=== PATIENT | female | born 1965 | race Caucasian/White ===

== ENCOUNTER 2017-01-26 21:00 | Emergency (ER) | payer OTHER ==
[~2017-01-26] VITALS: Ht 182.9 cm; Wt 105.0 kg
[~2017-01-26 21:00] MED LIST: ACYC-1 PO; ADDE25CA PO; HYDR-3533 PO; PRED10PA PO; PREV30CA36 PO; PROM25TA5 PO; WELL150T PO
[2017-01-26 21:13] VITALS: BP 116/66; PULSE 101; RESP 18; TEMP 98.7; O2SAT 97
[2017-01-26] MEDS ORDERED: ADDE20 PO (22:12)
[2017-01-26] MEDS ORDERED: ACYC800T PO (22:12)
[2017-01-26] MEDS ORDERED: WELLTAB39 PO (22:12)
[2017-01-26] MEDS ORDERED: PREV30CA11 PO (22:12)
[2017-01-26] MEDS ORDERED: HYDR-3533 PO (22:12)
[2017-01-26] MEDS ORDERED: XANA1TAB2 PO (22:20)
[2017-01-26] MEDS ORDERED: BISACODYL 10 MG SUPP RECTAL ONE (22:30)
[2017-01-26] MEDS ORDERED: ANUC25SU RECTAL (22:43)
[2017-01-26] MEDS ORDERED: MAGN1SOL2 PO (22:43)
--- NOTE | 2017-01-26 22:43 | PD ---
HPI Chief Complaint: GI Complaint Time Seen by Provider: 22:22 Travel History International Travel<30 days: No Contact w/Intl Traveler<30days: No Traveled to known affect area: No History of Present Illness HPI This 51-year-old female says that 2 days ago she was straining to have a bowel movement she noted some pain in the rectum and she had some bleeding. She's been unable to have a bowel movement since then and has ongoing pain and intermittent. She has been constipated in the past. PFSH Past Medical History ADHD: Yes Depression: Yes Diminished Hearing: No Integumentary: Yes (SHINGLES) Immunizations Current: No Migraines: Yes ?: Not : 4 Para: 2 : 2 Past Surgical History Other Surgery: Yes (BREAST AUGMENTATION 2005) Social History Alcohol Use: No Tobacco Use: Yes (1/ PPD X 18 YEARS) Substance Use: No Allergies-Medications (Allergen,Severity, Reaction): Coded Allergies: prednisone (Verified Allergy, Intermediate, 01/26/17) codeine (Unverified Allergy, Mild, 01/21/17) penicillin G (Unverified Allergy, Mild, RASH, BREATHING TROUBLE, 01/21/17) Reported Meds & Prescriptions Reported Meds & Active Scripts Active Reported Xanax (Alprazolam) 1 Mg Tab 1 Mg PO Q6H PRN Prevacid (Lansoprazole) 30 Mg Capdr 30 Mg PO DAILY Lortab (Hydrocodone-Acetaminophen) 5-325 Mg Tab 1 Tab PO Q6H PRN Wellbutrin Xl 24 HR (Bupropion HCl) 300 Mg Tab 300 Mg PO DAILY Adderall (Amphetamine-Dextroamphetamine) 20 Mg Tab 20 Mg PO DAILY Avoid late evening doses. Space doses at least 4 to 6 hours if more than once/day dosing. Acyclovir 800 Mg Tab 800 Mg PO TID Review of Systems General / Constitutional: No: Fever, Chills Eyes: No: Diploplia HENT: No: Headaches Cardiovascular: No: Chest Pain or Discomfort, Palpitations Respiratory: No: Cough Gastrointestinal: Positive: Hematochezia, Constipation, No: Nausea, Vomiting Genitourinary: No: Urgency, Frequency Skin: No Rash Physical Exam Narrative GENERAL: Well-developed female SKIN: Focused skin assessment warm/dry. HEAD: Atraumatic. Normocephalic. EYES: Pupils equal and round. No scleral icterus. No injection or drainage. ENT: No nasal bleeding or discharge. Mucous membranes pink and moist. NECK: Trachea midline. No JVD. CARDIOVASCULAR: Regular rate and rhythm. No murmur appreciated. RESPIRATORY: No accessory muscle use. Clear to auscultation. Breath sounds equal bilaterally. GASTROINTESTINAL: Abdomen soft, non-tender, nondistended. Hepatic and splenic margins not palpable. Rectal exam there are no hemorrhoids palpable. Stool is brown and is not hard. I there is no blood present MUSCULOSKELETAL: No obvious deformities. No clubbing. No cyanosis. No edema. NEUROLOGICAL: Awake and alert. No obvious cranial nerve deficits. Motor grossly within normal limits. Normal speech. PSYCHIATRIC: Appropriate mood and affect; insight and judgment normal. Data Data Last Documented VS Vital Signs Date Time Temp Pulse Resp B/P (MAP) Pulse Ox O2 Delivery O2 Flow Rate FiO2 01/26/17 21:13 98.7 101 18 116/66 (83) 97 Orders Orders Bisacodyl Supp (Dulcolax Supp) (01/26/17 22:30) [facility] Medical Decision Making Medical Screen Exam Complete: No Emergency Medical Condition: No Medical Record Reviewed: No Differential Diagnosis Differential includes internal hemorrhoids, anal fissure, constipation Narrative Course She'll be treated with citrate of magnesia and Anusol Diagnosis Primary Impression: Constipation Qualified Codes: K59.00 - Constipation, unspecified Additional Impression: possible anal fissure Scripts Hydrocortisone Acetate Supp (Anucort-Hc Supp) 25 Mg Supp 25 MG RECTAL BID for Hemorrhoids for 7 Days, SUPP 0 Refills Prov: Enoc Azevedo MD 01/26/17 Magnesium Citrate Liq (Citrate of Magnesia Liq) 300 Ml Liq 300 ML PO ONCE, #1 BOTTLE 0 Refills Prov: Enoc Azevedo MD 01/26/17 Disposition: 01 DISCHARGE HOME Condition: Stable Enoc Azevedo MD Jan 26, 2017 22:43
== END 2017-01-26 22:54 | disposition home or self-care (01) ==
LOC: PHED 21:00
DX: K59.00 Constipation, unspecified (principal); F17.210 Nicotine dependence, cigarettes, uncomplicated
CPT/HCPCS: 99284

== ENCOUNTER 2017-06-02 03:52 | Inpatient (IN) | payer SELFPAY ==
[~2017-06-02] VITALS: Ht 182.9 cm; Wt 101.7 kg
[2017-06-02] VITALS (16 sets, daily range): BP systolic 97–139; BP diastolic 58–90; PULSE 78–94; RESP 15–20; TEMP 97.2–98.7; O2SAT 93–99
[~2017-06-02 03:52] MED LIST changes: -ACYC-1 PO; +ACYC800T PO; +ADDE20 PO; -ADDE25CA PO; +ANUC25SU RECTAL; +MAGN1SOL2 PO; -PRED10PA PO; -PROM25TA5 PO; -WELL150T PO; +WELLTAB39 PO; +XANA1TAB2 PO
[2017-06-02] MEDS ORDERED: SODIUM CHLOR 0.9% 1000 ML INJ 1,000 ML IV ONE (04:16)
--- NOTE | 2017-06-02 04:26 | PD ---
HPI Chief Complaint: OD/ Ingestion Time Seen by Provider: 04:01 Travel History International Travel<30 days: No Contact w/Intl Traveler<30days: No Traveled to known affect area: No History of Present Illness HPI 52-year-old female presents to the emergency department by private transportation for evaluation of overdose and upper respiratory infection. According to the patient for the past 6 days she has been taking her prescription Adderall inappropriately. Patient states she's taken extra Adderall because she felt like she needed more energy. Patient states that today she took a total of 4 Adderall 20 mg also took 5 Lortab 5/325 and 2 Xanax 1 mg. Patient reports that the Adderall as her prescription but the Lortab and Xanax or not. Patient started taking her Lortab at 10 AM on Friday morning and has taken them throughout the day not as a one-time bolus patient is also in taking the Adderall as a spread out ingestion and took the Xanax 2 mg at one time. Patient also states that 3 days ago she drank a beverage that contains Alyssa. Patient reports she is a recovering drug addict. Patient admits to alcohol use and tobacco use. Patient otherwise denies any medical concerns or history. Patient takes no other prescription medications. Patient denies being suicidal or homicidal. Patient presents with her friend who states she has not hurt her mention her behave in a suicidal manner or homicidal manner. Friend reports he was just concerned that based on her poor decisions and taking her medications inappropriately and using medications that are not prescribed for her that she might go to sleep and not wake. Patient was agreeable to being brought to the emergency department voluntarily to be evaluated. Patient states the reason she decided to come to the emergency room tonight is that she's noted since taking the additional medication she has been short of breath more frequently and with exertion. Patient was concerned there may be a correlation. Patient does not report any chest pain. Patient does report feeling that her heart has been racing. PFSH Past Medical History Narrative Medical ADHD anxiety depression breast augmentation menopausal tobacco use alcohol use shingles migraines; nursing notes reviewed ADHD: Yes Depression: Yes Diminished Hearing: No Integumentary: Yes (SHINGLES) Immunizations Current: No Migraines: Yes Tetanus Vaccination: Unknown Influenza Vaccination: No ?: Not LMP: 5 MO AGO. GOING THROUGH MENSPAUSE : 4 Para: 2 : 2 Past Surgical History Other Surgery: Yes (BREAST AUGMENTATION 2005) Social History Alcohol Use: No Tobacco Use: Yes (1/2 PPD X 18 YEARS) Substance Use: No Allergies-Medications (Allergen,Severity, Reaction): Coded Allergies: prednisone (Verified Allergy, Intermediate, 06/02/17) codeine (Unverified Allergy, Mild, 06/02/17) penicillin G (Unverified Allergy, Mild, RASH, BREATHING TROUBLE, 06/02/17) Reported Meds & Prescriptions Reported Meds & Active Scripts Active Anucort-Hc Supp (Hydrocortisone Acetate Supp) 25 Mg Supp 25 Mg RECTAL BID 7 Days Citrate of Magnesia Liq (Magnesium Citrate) 300 Ml Liq 300 Ml PO ONCE Reported Xanax (Alprazolam) 1 Mg Tab 1 Mg PO Q6H PRN Prevacid (Lansoprazole) 30 Mg Capdr 30 Mg PO DAILY Lortab (Hydrocodone-Acetaminophen) 5-325 Mg Tab 1 Tab PO Q6H PRN Wellbutrin Xl 24 HR (Bupropion HCl) 300 Mg Tab 300 Mg PO DAILY Adderall (Amphetamine-Dextroamphetamine) 20 Mg Tab 20 Mg PO DAILY Avoid late evening doses. Space doses at least 4 to 6 hours if more than once/day dosing. Acyclovir 800 Mg Tab 800 Mg PO TID Review of Systems Except as stated in HPI: all other systems reviewed are Neg General / Constitutional: No: Fever, Chills Eyes: No: Visual changes HENT: Positive: Congestion, No: Sore Throat Cardiovascular: Positive: Tachycardia, Dyspnea on exertion, No: Chest Pain or Discomfort, Palpitations, Syncope, Edema Respiratory: Positive: Shortness of Breath, No: Pleuritic Pain Gastrointestinal: No: Nausea, Vomiting, Diarrhea, Abdominal Pain Genitourinary: No: Dysuria Skin: No Rash, No Dryness Neurologic: No: Weakness, Dizziness, Syncope, Focal Abnormalities Psychiatric: No: Suicidal Ideations (patient denies) Endocrine: No: Heat Intolerance, Cold Intolerance Hematologic/Lymphatic: No: Easy Bruising Physical Exam Narrative GENERAL: Well-developed well-nourished female in no acute distress no respiratory distress; GCS 15. SKIN: Warm and dry. HEAD: Atraumatic. Normocephalic. EYES: Pupils equal and round. No scleral icterus. No injection or drainage. ENT: No nasal bleeding or discharge. Mucous membranes pink and moist. NECK: Trachea midline. No JVD. CARDIOVASCULAR: Regular rate and rhythm. RESPIRATORY: No accessory muscle use. Clear to auscultation. Breath sounds equal bilaterally. GASTROINTESTINAL: Abdomen soft, non-tender, nondistended. Hepatic and splenic margins not palpable. MUSCULOSKELETAL: Extremities without clubbing, cyanosis, or edema. No obvious deformities. NEUROLOGICAL: Awake and alert. No obvious cranial nerve deficits. Motor grossly within normal limits. Five out of 5 muscle strength in the arms and legs. Normal speech. PSYCHIATRIC: Appropriate mood and affect; insight and judgment normal. Data Data Last Documented VS Vital Signs Date Time Temp Pulse Resp B/P (MAP) Pulse Ox O2 Delivery O2 Flow Rate FiO2 06/02/17 04:31 16 114/70 (85) 97 Room Air 06/02/17 03:54 98.6 94 Orders Orders Electrocardiogram (06/02/17 04:16) Complete Blood Count With Diff (06/02/17 04:16) Comprehensive Metabolic Panel (06/02/17 04:16) Prothrombin Time / Inr (Pt) (06/02/17 04:16) Act Partial Throm Time (Ptt) (06/02/17 04:16) Urinalysis - C+S If Indicated (06/02/17 04:16) Chest, Single Ap (06/02/17 04:16) Blood Glucose (06/02/17 04:16) Iv Access Insert/Monitor (06/02/17 04:16) Ecg Monitoring (06/02/17 04:16) Oximetry (06/02/17 04:16) Sodium Chloride 0.9% Flush (Ns Flush) (06/02/17 04:30) Sodium Chlor 0.9% 1000 Ml Inj (Ns 1000 M (06/02/17 04:16) Drug Screen, Random Urine (06/02/17 04:16) Alcohol (Ethanol) (06/02/17 04:16) Salicylates (Aspirin) (06/02/17 04:16) Tylenol (Acetaminophen) (06/02/17 04:16) Magnesium (Mg) (06/02/17 04:16) Troponin I (06/02/17 04:16) Ckmb (Isoenzyme) Profile (06/02/17 04:16) Type And Screen (06/02/17 05:23) Red Blood Cells (Rbc) (06/02/17 05:23) Blood Product Administration (06/02/17 05:23) Sodium Chlor 0.9% 250 Ml Inj (Ns 250 Ml (06/02/17 05:30) Ct Abd/Pel W Iv Contrast(Rout) (06/02/17 ) Admit Order (Ed Use Only) (06/02/17 ) Advertising Sales Assistant / Telemetry [id number] (06/02/17 05:57) Diet Npo (06/02/17 Breakfast) Activity Oob With Assistance (06/02/17 05:57) Notify Dr: Other (06/02/17 05:57) Labs Laboratory Tests Test 06/02/17 04:30 06/02/17 04:53 Urine Color STRAW Urine Turbidity CLEAR Urine pH 5.5 Urine Specific [place] 1.007 Urine Protein NEG mg/dL Urine Glucose (UA) NEG mg/dL Urine Ketones NEG mg/dL Urine Occult Blood TRACE Urine Nitrite NEG Urine Bilirubin NEG Urine Leukocyte Esterase NEG Urine RBC 0-3 /hpf Urine Squamous Epithelial Cells 0-5 /hpf Microscopic Urinalysis Comment CULT NOT INDICATED Urine Opiates Screen POS Urine Barbiturates Screen NEG Urine Amphetamines Screen POS Urine Benzodiazepines Screen POS Urine Cocaine Screen NEG Urine Cannabinoids Screen NEG White Blood Count 4.8 TH/MM3 Red Blood Count 3.48 MIL/MM3 Hemoglobin 6.6 GM/DL Hematocrit 22.3 % Mean Corpuscular Volume 64.0 FL Mean Corpuscular Hemoglobin 18.9 PG Mean Corpuscular Hemoglobin Concent 29.5 % Red Cell Distribution Width 20.8 % Platelet Count 360 TH/MM3 Mean Platelet Volume 7.6 FL Neutrophils (%) (Auto) 41.8 % Lymphocytes (%) (Auto) 42.0 % Monocytes (%) (Auto) 12.8 % Eosinophils (%) (Auto) 2.9 % Basophils (%) (Auto) 0.5 % Neutrophils # (Auto) 2.0 TH/MM3 Lymphocytes # (Auto) 2.1 TH/MM3 Monocytes # (Auto) 0.6 TH/MM3 Eosinophils # (Auto) 0.1 TH/MM3 Basophils # (Auto) 0.0 TH/MM3 CBC Comment AUTO DIFF Differential Comment AUTO DIFF CONFIRMED Platelet Estimate NORMAL Platelet Morphology Comment CLUMPED Spherocytes OCC Ovalocytes 1+ Prothrombin Time 10.0 SEC Prothromb Time International Ratio 1.0 RATIO Activated Partial Thromboplast Time 24.6 SEC Blood Urea Nitrogen 20 MG/DL Creatinine 0.77 MG/DL Random Glucose 99 MG/DL Total Protein 6.7 GM/DL Albumin 3.0 GM/DL Calcium Level 8.1 MG/DL Magnesium Level 2.1 MG/DL Alkaline Phosphatase 70 U/L Aspartate Amino Transf (AST/SGOT) 14 U/L Alanine Aminotransferase (ALT/SGPT) 14 U/L Total Bilirubin 0.1 MG/DL Sodium Level 135 MEQ/L Potassium Level 3.9 MEQ/L Chloride Level 105 MEQ/L Carbon Dioxide Level 22.1 MEQ/L Anion Gap 8 MEQ/L Estimat Glomerular Filtration Rate 78 ML/MIN Total Creatine Kinase 70 U/L Troponin I LESS THAN 0.02 NG/ML Salicylates Level 3.1 MG/DL Acetaminophen Level 3.7 MCG/ML Ethyl Alcohol Level LESS THAN 3 MG/DL MDM Medical Decision Making Medical Screen Exam Complete: Yes Emergency Medical Condition: Yes Medical Record Reviewed: Yes Interpretation(s) EKG: Normal sinus rhythm heart rate 85 normal axis and intervals no acute ST elevation or injury pattern change noted CBC & BMP Diagram 06/02/17 04:53 Total Protein 6.7, Albumin 3.0 L, Calcium Level 8.1 L, Magnesium Level 2.1, Alkaline Phosphatase 70, Aspartate Amino Transf (AST/SGOT) 14 L, Alanine Aminotransferase (ALT/SGPT) 14, Total Bilirubin 0.1 L Last Impressions Chest X-Ray 06/02/17 0416 Signed Impressions: Service Date/Time: Friday, June 02, 2017 04:26 - CONCLUSION: Slight cardiomegaly. Jeannine Breen MD Abdomen/Pelvis CT 06/02/17 0000 Signed Impressions: Service Date/Time: Friday, June 02, 2017 05:59 - CONCLUSION: Essentially unremarkable study except for small left adrenal adenoma. Jeannine Breen MD Vital Signs Date Time Temp Pulse Resp B/P (MAP) Pulse Ox O2 Delivery O2 Flow Rate FiO2 06/02/17 04:31 16 114/70 (85) 97 Room Air 06/02/17 03:54 98.6 94 18 139/79 (99) 99 Differential Diagnosis Polysubstance ingestion, medication intolerance, overdose accidental versus intentional, electrolyte disturbance, arrhythmia, renal insufficiency, rhabdomyolysis, MS Narrative Course Patient placed on monitor tech with continuous pulse oximetry, IV access obtained, EKG ordered, specimens collected and sent for resulting Patient cooperative resting comfortably waiting on lab results Patient identified to have anemia hemoglobin 66; rectal exam performed as dark brown stool that is Hemoccult positive; patient admits to pica-increased ice consumption; patient denies known hematemesis coffee-ground emesis melanoma hematochezia or excessive NSAID use. No prior history of GI bleed. patient aware of plan for admission and agrees to stay Sepsis Criteria SIRS Criteria (2 or more): WBC > 21192, < 4000 or > 10% bands Physician Communication Physician Communication discussed with Dr Laughlin --admit to [facility] service Diagnosis Primary Impression: Anemia Additional Impressions: GI bleed Polysubstance abuse Humera Conteh MD Jun 02, 2017 04:26
[2017-06-02] MEDS ORDERED: SODIUM CHLORIDE 0.9% FLUSH 10 ML FLUSH IVF PRN (04:30)
[2017-06-02 04:34] LABS: BILIRUBIN, URINE NEG (NEG); BLOOD, URINE TRACE (NEG); GLUCOSE,URINE NEG (NEG); KETONE, URINE NEG (NEG); NITRITE,URINE NEG (NEG); PH, URINE 5.5 (5.0-8.5); URINE LEUKOCYTE ESTERASE NEG (NEG)
--- NOTE | 2017-06-02 05:00 | RADRPT ---
EXAM DATE/TIME: 06/02/2017 04:26 [facility] COMPARISON: No previous studies available for comparison. INDICATIONS : Patient complains of cough, congestion, and chest pain from coughing. MEDICAL HISTORY : None. SURGICAL HISTORY : None. ENCOUNTER: Initial ACUITY: 4 - 6 days PAIN SCORE: 3/10 LOCATION: chest FINDINGS: The lungs are clear without infiltrate, nodule, or mass. There is no appreciable pleural effusion fo r technique. Slight cardiomegaly is seen. CONCLUSION: Slight cardiomegaly. Jeannine Breen MD on June 02, 2017 at 4:58 Board Certified Radiologist. This report was verified electronically.
[2017-06-02 05:16] LABS: CHLORIDE 105 MEQ/L (98-107); SODIUM (NA) 135 MEQ/L (136-145)
[2017-06-02 05:19] LABS: BASOPHIL % 0.5 % (0.0-2.0); EOSINOPHIL # 0.1 TH/MM3 (0-0.4); EOSINOPHIL % 2.9 % (0.0-4.0); HEMATOCRIT 22.3 % (35.0-46.0); LYMPHOCYTE # 2.1 TH/MM3 (1.0-4.8); MEAN CORPUSCULAR HEMOGLOBIN 18.9 PG (27.0-34.0); MEAN PLATELET VOLUME 7.6 FL (7.0-11.0); MONO % 12.8 % (0.0-8.0); MONOCYTE # 0.6 TH/MM3 (0-0.9); NEUT % 41.8 % (16.0-70.0); PLATELET COUNT 360 TH/MM3 (150-450); RED BLOOD COUNT 3.48 MIL/MM3 (4.00-5.30); RED CELL DISTRIBUTION WIDTH 20.8 % (11.6-17.2); WHITE BLOOD COUNT 4.8 TH/MM3 (4.0-11.0)
[2017-06-02 05:20] LABS: BICARBONATE 22.1 MEQ/L (21.0-32.0); BLOOD UREA NITROGEN 20 MG/DL (7-18); CALCIUM 8.1 MG/DL (8.5-10.1); GLUCOSE,RANDOM 99 MG/DL (74-106); MAGNESIUM 2.1 MG/DL (1.5-2.5)
[2017-06-02 05:23] LABS: ALT (GPT) 14 U/L (10-53); AST (GOT) 14 U/L (15-37); CREATININE 0.77 MG/DL (0.50-1.00); GLOMERULAR FILTRATION RATE 78 ML/MIN (>89)
[2017-06-02 05:24] LABS: HEMOGLOBIN 6.6 GM/DL (11.6-15.3); MEAN CORPUSCULAR HGB CONC 29.5 % (32.0-36.0)
[2017-06-02 05:25] LABS: TOTAL BILIRUBIN ADULT 0.1 MG/DL (0.2-1.0); TOTAL PROTEIN 6.7 GM/DL (6.4-8.2)
[2017-06-02 05:26] LABS: ALKALINE PHOSPHATASE 70 U/L (45-117)
[2017-06-02 05:29] LABS: TROPONIN I LESS THAN 0.02 NG/ML (0.02-0.05)
[2017-06-02] MEDS ORDERED: SODIUM CHLOR 0.9% 250 ML INJ 250 ML IV ONE (05:30)
[2017-06-02 05:31] LABS: URINE COLOR STRAW (YELLW/STRAW)
[2017-06-02 05:47] LABS: ACETAMINOPHEN 3.7 MCG/ML (10.0-30.0)
[2017-06-02 05:51] LABS: SQUAMOUS EPITHELIAL CELL URINE 0-5 /hpf (0-5)
[2017-06-02 05:52] LABS: RBC, URINE 0-3 /hpf (0-3)
[2017-06-02 05:56] LABS: OVALOCYTES 1+ (NORMAL); SPHEROCYTES OCC (NORMAL)
[2017-06-02] MEDS ORDERED: SENNOSIDES 8.6 MG TAB PO PRN (06:00)
[2017-06-02] MEDS ORDERED: BISACODYL 10 MG SUPP RECTAL PRN (06:00)
[2017-06-02] MEDS ORDERED: SODIUM CHLORIDE 0.9% FLUSH 10 ML FLUSH IV FLUSH PRN (06:00)
[2017-06-02] MEDS ORDERED: NALOXONE HCL 0.4 MG/ML AMP IV PUSH PRN (06:00)
[2017-06-02] MEDS ORDERED: ONDANSETRON HCL 4 MG/2 ML VIAL IVP PRN (06:00)
[2017-06-02] MEDS ORDERED: LACTULOSE SYRUP 20 GM/30 ML CUP PO PRN (06:00)
[2017-06-02] MEDS ORDERED: MAGNESIUM HYDROXIDE SUSP 30 ML CUP PO PRN (06:00)
[2017-06-02] MEDS ORDERED: IOHEXOL 350 MG/ML 10 ML VIAL (for RAD DIAG) IVCONTRAST ONE (06:06)
--- NOTE | 2017-06-02 06:23 | RADRPT ---
EXAM DATE/TIME: 06/02/2017 05:59 [facility] COMPARISON: No previous studies available for comparison. INDICATIONS : Blood in stool. IV CONTRAST: 96 cc Omnipaque 350 (iohexol) IV ORAL CONTRAST: No oral contrast ingested. RADIATION DOSE: 18.76 CTDIvol (mGy) MEDICAL HISTORY : None SURGICAL HISTORY : Breast augmentation ENCOUNTER: Initial ACUITY: 4 - 6 days PAIN SCALE: 5/10 LOCATION: abdomen TECHNIQUE: Volumetric scanning of the abdomen and pelvis was performed. Using automated exposure control and ad justment of the mA and/or kV according to patient size, radiation dose was kept as low as reasonably achievable to obtain optimal diagnostic quality images. DICOM format image data is available electro nically for review and comparison. FINDINGS: CT Abdomen: The liver, spleen, pancreas, kidneys, right adrenal are unremarkable. There is no evidenc e for any appreciable pathological adenopathy, free fluid, or bowel obstruction. Huge hiatal hernia i s seen. Approximate 1.3 cm left adrenal nodule is present most likely a small adenoma. There is no ev idence for any stones in the kidneys or the course of the ureters on either side. There is no hydrone phrosis. CT pelvis: There is no evidence for mass, abscess formation, or any significant adenopathy within the pelvis. There is a tiny bone island in the right ischium almost 4-5 mm in size. CONCLUSION: Essentially unremarkable study except for small left adrenal adenoma. Jeannine Breen MD on June 02, 2017 at 6:17 Board Certified Radiologist. This report was verified electronically.
--- NOTE | 2017-06-02 08:43 | EKG ---
Date Performed: 06/02/2017 Time Performed: 04:30:04 PTAGE: 52 years EKG: Sinus rhythm NORMAL ECG NO PREVIOUS TRACING DOCTOR: Jonathan Min Interpretating Date/Time 06/02/2017 08:41:58
[2017-06-02] MEDS: DOCUSATE SODIUM 50 MG/SENNA 8.6 MG TAB PO SCH ×2 (09:00→20:50)
[2017-06-02] MEDS ORDERED: BISACODYL EC 5 MG TABEC PO ONE ×2 (09:15→15:00)
[2017-06-02] MEDS: SODIUM CHLORIDE 0.9% FLUSH 10 ML FLUSH IV FLUSH SCH ×2 (09:15→20:50)
[2017-06-02] MEDS ORDERED: PEG (High)/E-LYTE SOLN 4000 ML BTL PO ONE ×2 (09:15→15:00)
--- NOTE | 2017-06-02 09:26 | MB ---
cc: YOLIE JENSEN MD DATE OF CONSULTATION: 06/02/2017 REASON FOR CONSULTATION: Anemia. HISTORY OF PRESENT ILLNESS: This is a 52-year-old female patient with past medical history of depression who presented to the emergency room complaining of generalized fatigue and weakness. The patient was overdosing herself with different oral medications because she was feeling lethargic and needed some more energy. In the emergency room, the patient was found to have microcytic hypochromic anemia and was admitted for further evaluation. The patient denies any specific symptoms at the current time except for recent worsening of her constipation and that might be attributed to her overdosing with her opiates. She denies any bleeding per rectum or dark stools. Denies any nausea, vomiting, hematemesis. Denies any vaginal bleeding. The patient denies any change in weight or appetite. No dysphagia, heartburn or any other associated symptoms. Again, the patient was found to have hemoglobin of 6.6 in the emergency room, hematocrit 22.3 with indices suggestive of iron deficiency anemia. GI was consulted for further evaluation and possible endoscopic evaluation since the patient never had any previous screening colonoscopy or any previous endoscopy evaluation. PAST MEDICAL HISTORY: 1. Anxiety disorder. 2. Depression. 3. Migraine headaches. PAST SURGICAL HISTORY: Breast augmentation. SOCIAL HISTORY: The patient denies alcohol use but is a heavy tobacco user. Overuse of her oral prescription medications along with other medicine. MEDICATIONS: Actively she is on Adderall. She is not taking any other medications. ALLERGIES: 1. PREDNISONE. 2. CODEINE. 3. PENICILLIN. REVIEW OF SYSTEMS All fourteen systems negative other than the ones mentioned in the history of present illness. FAMILY HISTORY: Family history positive for gastric CA in her grandmother and her sister. PHYSICAL EXAMINATION: GENERAL: On examination, the patient was found to be comfortable, lethargic but responds properly to questions, alert and oriented times three. Pallor but no jaundice. Well-developed and good nutritional status. Not in respiratory distress. HEAD AND NECK: Normocephalic and atraumatic. Pupils equal and reactive to light bilaterally. Supple neck. No lymphadenopathy. No thyromegaly. CHEST: Clear to auscultation bilaterally. No crackles or wheezes. HEART: Regular rate and rhythm. No murmurs. ABDOMEN: The abdomen is soft, nontender. No hepatosplenomegaly. No palpable masses. EXTREMITIES: Normal pulses. No edema. NEUROLOGICAL EXAMINATION: Cranial nerves II through XII are grossly intact. No motor or sensory deficit. SKIN: No rashes. LABORATORY STUDIES: Hemoglobin 6.6, hematocrit 22.3, MCV 64, MCH 19, white count 4.8, platelet count of 360,000. Chemistries within normal limits except for a sodium of 135. AST and ALT 14. Alkaline phosphatase 70. Tox screen positive for opiates in the urine and positive for amphetamines in the blood and benzodiazepines. IMAGING STUDIES: CT scan unremarkable except for an adrenal adenoma. ASSESSMENT AND PLAN: A 52-year-old female patient who presented with the following problems: 1. Microcytic hypochromic anemia. 2. New onset constipation. 3. History of drug abuse. 4. No previous endoscopic evaluation. 5. Positive family history of gastric or colonic CA in her grandmother. RECOMMENDATIONS: 1. Will start bowel preparation today for an upper endoscopy and a colonoscopy. 2. Will start her on clear liquid diet. 3. Start GoLYTELY. 4. Dulcolax. 5. NPO after midnight. 6. Will obtain the consent to proceed in the morning. The procedure was explained to the patient including risks, benefits and possible complications, and the patient agreed to proceed as planned. Further recommendation to follow. Yolie CARR/KEYANA /8:50 AM /9:01 AM
[2017-06-02] MEDS ORDERED: SODIUM CHLOR 0.9% 250 ML INJ 250 ML IV SCH (10:00)
--- NOTE | 2017-06-02 10:17 | HHI.HP ---
[facility] Katheryn Reardon MD Admission Diagnosis anemia/gib; polysustance abuse Diagnoses: (1) GI bleed Diagnosis: Principal (2) Anemia Diagnosis: Principal (3) Polysubstance abuse Diagnosis: Principal Chief Complaint: Altered mental status Travel History International Travel<30 Days: No Contact w/Intl Traveler <30 Da: No Traveled to Known Affected Are: No History of Present Illness 52-year-old female with known history of depression, anxiety, attention deficit disorder, polysubstance abuse who presented to the hospital with her friend because of slurred speech, shortness of breath. Patient indicates that she does use drugs inappropriately. She has been using Adderall , Xanax, Lortab, Suboxone in order to alliance party. He states that her last 3 days she has been overusing medications has not really slept. She called her friend on the phone last evening and apparently she stated that her friend noticed that she was having difficulty speaking and shortness of breath so her friend brought her to the hospital for evaluation. Patient indicates that she is actually prescribed the Adderall and Xanax, however Lortab, Suboxone she is getting off the street. She was using Suboxone because she thought she may withdrawal from the Lortab because she is only using it intermittently. However she is using the Lortab and Suboxone at the same time. Patient denies any medical complaints. At time of barium patient she appears appropriate and does admit to overusing medication for recreational use. Patient had lab done in emergency department found to have hemoglobin of 6.6. Stool studies was performed which did show heme positive stool. Patient denies any melena or hematochezia. She denies any history of anemia or GI bleed. She denies any NSAID, aspirin use. Patient was admitted for GI bleed for GI consultation. Review of Systems Respiratory: COMPLAINS OF: Shortness of breath Neurologic: COMPLAINS OF: Speech Problems Except as stated in HPI: all other systems reviewed are Neg Past Family Social History Past Medical History Anxiety, depression Attention deficit disorder Past Surgical History Breast augmentation Reported Medications Reported Meds & Active Scripts Active Anucort-Hc Supp (Hydrocortisone Acetate Supp) 25 Mg Supp 25 Mg RECTAL BID 7 Days Citrate of Magnesia Liq (Magnesium Citrate) 300 Ml Liq 300 Ml PO ONCE Reported Xanax (Alprazolam) 1 Mg Tab 1 Mg PO Q6H PRN Prevacid (Lansoprazole) 30 Mg Capdr 30 Mg PO DAILY Lortab (Hydrocodone-Acetaminophen) 5-325 Mg Tab 1 Tab PO Q6H PRN Wellbutrin Xl 24 HR (Bupropion HCl) 300 Mg Tab 300 Mg PO DAILY Adderall (Amphetamine-Dextroamphetamine) 20 Mg Tab 20 Mg PO DAILY Avoid late evening doses. Space doses at least 4 to 6 hours if more than once/day dosing. Acyclovir 800 Mg Tab 800 Mg PO TID Allergies: Coded Allergies: prednisone (Verified Allergy, Intermediate, 06/02/17) codeine (Unverified Allergy, Mild, 06/02/17) penicillin G (Unverified Allergy, Mild, RASH, BREATHING TROUBLE, 06/02/17) Family History Reviewed is significant for mother with bone cancer. Patient states that she does not know her father's history. Social History Patient does smoke one pack of service a day since she was 14 years old. Patient denies any alcohol use. Patient obviously with polysubstance abuse of abusing Lortab, Suboxone, Adderall, Xanax. Some of which are prescribed, however others are not. Physical Exam Vital Signs Vital Signs Date Time Temp Pulse Resp B/P (MAP) Pulse Ox O2 Delivery O2 Flow Rate FiO2 06/02/17 10:04 97.4 86 17 99/69 93 06/02/17 09:48 82 15 97/75 94 06/02/17 09:32 84 15 99/66 94 06/02/17 09:17 97.2 84 16 115/72 93 06/02/17 04:31 16 114/70 (85) 97 Room Air 06/02/17 03:54 98.6 94 18 139/79 (99) 99 Physical Exam GENERAL: Well-developed, well-nourished, in no acute distress. alert and orientated HEENT: Head is normocephalic without any lesions or masses noted. Facial features are symmetric. Eyes: Pupils equal round reactive to light. Extraocular muscles are intact. Conjunctivae were clear. Oropharyngeal: Pharynx without any erythema edema. Tongue is midline without deviation. Buccal mucosa is moist without any masses or lesions NECK: Supple without any masses. Trachea midline no deviation. No JVD, no bruits are appreciated CARDIAC: Regular rhythm, regular rate. S1/S2 are heard. No murmurs gallops or rubs. LUNGS: Clear to auscultation bilaterally. No wheeze, rhonchi or rales. No use of accessory muscles on inspiration or expiration. ABDOMEN: Soft, nontender. Nondistended. Bowel sounds heard in all 4 quadrants. No organomegaly or masses. Negative rebound, negative guarding EXTREMITIES: No edema, pulses are equal bilaterally. No cyanosis or clubbing NEUROLOGY: Mood and affect appear appropriate. Cranial nerves II through XII grossly intact. Muscle strength 5/5 in upper and lower extremities bilaterally. Deep tendon reflexes are 2+ in upper and lower extremities bilaterally. Laboratory Laboratory Tests Test 06/02/17 04:30 06/02/17 04:53 Urine Color STRAW Urine Turbidity CLEAR Urine pH 5.5 Urine Specific Shaw 1.007 Urine Protein NEG Urine Glucose (UA) NEG Urine Ketones NEG Urine Occult Blood TRACE Urine Nitrite NEG Urine Bilirubin NEG Urine Leukocyte Esterase NEG Urine RBC 0-3 Urine Squamous Epithelial Cells 0-5 Microscopic Urinalysis Comment CULT NOT INDICATED Urine Opiates Screen POS Urine Barbiturates Screen NEG Urine Amphetamines Screen POS Urine Benzodiazepines Screen POS Urine Cocaine Screen NEG Urine Cannabinoids Screen NEG White Blood Count 4.8 Red Blood Count 3.48 Hemoglobin 6.6 Hematocrit 22.3 Mean Corpuscular Volume 64.0 Mean Corpuscular Hemoglobin 18.9 Mean Corpuscular Hemoglobin Concent 29.5 Red Cell Distribution Width 20.8 Platelet Count 360 Mean Platelet Volume 7.6 Neutrophils (%) (Auto) 41.8 Lymphocytes (%) (Auto) 42.0 Monocytes (%) (Auto) 12.8 Eosinophils (%) (Auto) 2.9 Basophils (%) (Auto) 0.5 Neutrophils # (Auto) 2.0 Lymphocytes # (Auto) 2.1 Monocytes # (Auto) 0.6 Eosinophils # (Auto) 0.1 Basophils # (Auto) 0.0 CBC Comment AUTO DIFF Differential Comment AUTO DIFF CONFIRMED Platelet Estimate NORMAL Platelet Morphology Comment CLUMPED Spherocytes OCC Ovalocytes 1+ Prothrombin Time 10.0 Prothromb Time International Ratio 1.0 Activated Partial Thromboplast Time 24.6 Blood Urea Nitrogen 20 Creatinine 0.77 Random Glucose 99 Total Protein 6.7 Albumin 3.0 Calcium Level 8.1 Magnesium Level 2.1 Alkaline Phosphatase 70 Aspartate Amino Transf (AST/SGOT) 14 Alanine Aminotransferase (ALT/SGPT) 14 Total Bilirubin 0.1 Sodium Level 135 Potassium Level 3.9 Chloride Level 105 Carbon Dioxide Level 22.1 Anion Gap 8 Estimat Glomerular Filtration Rate 78 Total Creatine Kinase 70 Troponin I LESS THAN 0.02 Salicylates Level 3.1 Acetaminophen Level 3.7 Ethyl Alcohol Level LESS THAN 3 Result Diagram: 06/02/1745206/02/17452 Imaging Last Impressions Chest X-Ray 06/02/17415 Signed Impressions: Service Date/Time: Friday, June 02, 2017 04:26 - CONCLUSION: Slight cardiomegaly. Jeannine Breen MD Abdomen/Pelvis CT 06/02/17 0000 Signed Impressions: Service Date/Time: Friday, June 02, 2017 05:59 - CONCLUSION: Essentially unremarkable study except for small left adrenal adenoma. Jeannine Breen MD Capbryan VTE Risk Assessment Caprini VTE Risk Assessment: Mod/High Risk (score >= 2) VTE Pharm Contraindication: Active bleeding Caprini Risk Assessment Model Point Value = 1 Point Value = 2 Point Value = 3 Point Value = 5 Age 41-60 Minor surgery BMI > 25 kg/m2 Swollen legs Varicose veins or History of unexplained or recurrent spontaneous Oral contraceptives or hormone replacement Sepsis (< 1 month) Serious lung disease, including pneumonia (< 1 month) Abnormal pulmonary function Acute myocardial infarction Congestive heart failure (< 1 month) History of inflammatory bowel disease Medical patient at bed rest Age 61-74 Arthroscopic surgery Major open surgery (> 45 min) Laparoscopic surgery (> 45 min) Malignancy Confined to bed (> 72 hours) Immobilizing plaster cast Central venous access Age >= 75 History of VTE Family history of VTE Factor V Leiden Prothrombin [id number] Lupus anticoagulant Anticardiolipin antibodies Elevated serum homocysteine Heparin-induced thrombocytopenia Other congenital or acquired thrombophilia Stroke (< 1 month) Elective arthroplasty Hip, pelvis, or leg fracture Acute spinal cord injury (< 1 month) Prophylaxis Regimen Total Risk Factor Score Risk Level Prophylaxis Regimen 0-1 Low Early ambulation 2 Moderate Order ONE of the following: *Sequential Compression Device (SCD) *Heparin 5000 units SQ BID 3-4 Higher Order ONE of the following medications: *Heparin 5000 units SQ TID *Enoxaparin/Lovenox 40 mg SQ daily (WT < 150 kg, CrCl > 30 mL/min) *Enoxaparin/Lovenox 30 mg SQ daily (WT < 150 kg, CrCl > 10-29 mL/min) *Enoxaparin/Lovenox 30 mg SQ BID (WT < 150 kg, CrCl > 30 mL/min) AND/OR *Sequential Compression Device (SCD) 5 or more Highest Order ONE of the following medications: *Heparin 5000 units SQ TID (Preferred with Epidurals) *Enoxaparin/Lovenox 40 mg SQ daily (WT < 150 kg, CrCl > 30 mL/min) *Enoxaparin/Lovenox 30 mg SQ daily (WT < 150 kg, CrCl > 10-29 mL/min) *Enoxaparin/Lovenox 30 mg SQ BID (WT < 150 kg, CrCl > 30 mL/min) AND *Sequential Compression Device (SCD) Assessment and Plan Assessment and Plan Anemia from GI loss Patient with heme positive stool Transfusing 2 units packed red blood cells GI consulted and plan did perform EGD/colonoscopy tomorrow morning Avoid NSAIDs, aspirin Polysubstance abuse, overuse medication Patient denies any suicidal intention, ideation Patient is supposedly recovering addict Counseled patient on abstinence and outpatient rehabilitation DVT prevention sequential compression devices, avoid chemical prophylaxis secondary to anemia from GI bleed Physician Certification 2 Midnight Certification Type: Admission for Inpatient Services Order for Inpatient Services The services are ordered in accordance with Medicare regulations or non- Medicare payer requirements, as applicable. In the case of services not specified as inpatient-only, they are appropriately provided as inpatient services in accordance with the 2-midnight benchmark. Estimated LOS (days): 2 days is the estimated time the patient will need to remain in the hospital, assuming treatment plan goals are met and no additional complications. Post-Hospital Plan: Not yet determined Thanh Arnold Jun 02, 2017 10:17
[2017-06-02 18:31] LABS: HEMATOCRIT 30.2 % (35.0-46.0); HEMOGLOBIN 9.2 GM/DL (11.6-15.3)
[2017-06-03] VITALS (10 sets, daily range): BP systolic 121–144; BP diastolic 62–85; PULSE 78–97; RESP 18–20; TEMP 97.1–99.1; O2SAT 94–98
[2017-06-03 06:22] LABS: AUTOMATED NEUTROPHIL # 4.3 TH/MM3 (1.8-7.7); BASOPHIL % 0.1 % (0.0-2.0); EOSINOPHIL % 0.3 % (0.0-4.0); HEMATOCRIT 29.8 % (35.0-46.0); HEMOGLOBIN 8.8 GM/DL (11.6-15.3); LYMPH % 23.1 % (9.0-44.0); LYMPHOCYTE # 1.4 TH/MM3 (1.0-4.8); MEAN CELL VOLUME 67.5 FL (80.0-100.0); MEAN PLATELET VOLUME 7.9 FL (7.0-11.0); MONO % 7.8 % (0.0-8.0); MONOCYTE # 0.5 TH/MM3 (0-0.9); NEUT % 68.7 % (16.0-70.0); PLATELET COUNT 401 TH/MM3 (150-450); RED BLOOD COUNT 4.41 MIL/MM3 (4.00-5.30); RED CELL DISTRIBUTION WIDTH 24.2 % (11.6-17.2); WHITE BLOOD COUNT 6.3 TH/MM3 (4.0-11.0)
[2017-06-03 06:42] LABS: MEAN CORPUSCULAR HGB CONC 29.7 % (32.0-36.0)
[2017-06-03 06:45] LABS: CALCIUM 8.4 MG/DL (8.5-10.1)
[2017-06-03 06:46] LABS: BICARBONATE 21.4 MEQ/L (21.0-32.0)
[2017-06-03 07:03] LABS: OVALOCYTES 1+ (NORMAL); TARGET CELLS 1+ (NORMAL)
[2017-06-03 07:05] LABS: CREATININE 0.55 MG/DL (0.50-1.00)
--- NOTE | 2017-06-03 07:42 | HHI.PR ---
Subjective Remarks Still with some nausea but did not vomit. No diarrhea. No fever or chills night. Since she is anxious. No tremors. Plan for EGD colonoscopy today possible Objective Vitals Vital Signs Date Time Temp Pulse Resp B/P (MAP) Pulse Ox O2 Delivery O2 Flow Rate FiO2 06/03/17 04:00 97.9 97 20 125/80 (95) 97 06/03/17 00:00 98.2 95 20 132/78 (96) 98 06/02/17 20:00 97.6 86 20 121/72 (88) 95 06/02/17 16:00 97.7 81 18 129/78 (95) 97 06/02/17 15:01 85 06/02/17 13:14 97.4 78 18 122/84 97 06/02/17 13:06 122/84 06/02/17 12:30 80 17 119/86 95 06/02/17 12:00 98.7 83 18 127/90 (102) 96 06/02/17 12:00 87 16 129/90 98 06/02/17 11:30 81 16 118/77 94 06/02/17 10:04 97.4 86 17 99/69 93 06/02/17 09:48 82 15 97/75 94 06/02/17 09:32 84 15 99/66 94 06/02/17 09:17 97.2 84 16 115/72 93 06/02/17 08:53 82 06/02/17 08:00 98.1 83 18 112/58 (76) 95 I/O 06/02/17 06/02/17 06/02/17 06/03/17 06/03/17 06/03/17 07:00 15:00 23:00 07:00 15:00 23:00 Intake Total 1000 ml 400 ml 400 ml 4000 ml Balance 1000 ml 400 ml 400 ml 4000 ml Intake Oral 4000 ml IV Total 1000 ml Packed Cells 400 ml 400 ml # Voids 7 5 # Bowel Movements 2 5 Result Diagram: 06/03/17 0545 06/03/17 0545 Imaging Last Impressions Chest X-Ray 06/02/17 0416 Signed Impressions: Service Date/Time: Friday, June 02, 2017 04:26 - CONCLUSION: Slight cardiomegaly. Jeannine Breen MD Abdomen/Pelvis CT 06/02/17 0000 Signed Impressions: Service Date/Time: Friday, June 02, 2017 05:59 - CONCLUSION: Essentially unremarkable study except for small left adrenal adenoma. Jeannine Breen MD Objective Remarks GENERAL: Well-developed, well-nourished, appears anxious, alert and orientated CARDIAC: Regular rhythm, regular rate. S1/S2 are heard. No murmurs gallops or rubs. LUNGS: Clear to auscultation bilaterally. No wheeze, rhonchi or rales. No use of accessory muscles on inspiration or expiration. ABDOMEN: Soft, nontender. Nondistended. Bowel sounds heard in all 4 quadrants. No organomegaly or masses. Negative rebound, negative guarding EXTREMITIES: No edema, pulses are equal bilaterally. No cyanosis or clubbing NEUROLOGY: Mood and affect appear appropriate. Cranial nerves II through XII grossly intact. Muscle strength 5/5 in upper and lower extremities bilaterally. A/P Problem List: (1) GI bleed ICD Code: K92.2 - Gastrointestinal hemorrhage, unspecified Status: Acute (2) Anemia ICD Code: D64.9 - Anemia, unspecified Status: Acute (3) Polysubstance abuse ICD Code: F19.10 - Other psychoactive substance abuse, uncomplicated Status: Acute Assessment and Plan Anemia from GI loss Patient with heme positive stool S/P 2 units packed red blood cells. MOnitor H/H and transfuse if HGB < 7 or if symptomatic GI consulted and plan for EGD/colonoscopy Avoid NSAIDs, aspirin Polysubstance abuse, overuse medication Patient denies any suicidal intention, ideation Patient is supposedly recovering addict Counseled patient on abstinence and outpatient rehabilitation DVT prevention sequential compression devices, avoid chemical prophylaxis secondary to anemia from GI bleed Discussed with the patient, nurse. DC plan pending improvement, plan for EGD/colonoscopy, DC when cleared by Rosa Hale MD Jun 03, 2017 07:42
[2017-06-03] MEDS ORDERED: POTASSIUM BICARBONATE 25 MEQ EFFERVESCENT TAB PO ONE (07:45)
[2017-06-03] MEDS ORDERED: POTASSIUM CHLORIDE 10 MEQ CONTROLLED RELEASE TAB PO ONE (07:45)
[2017-06-03] MEDS: DOCUSATE SODIUM 50 MG/SENNA 8.6 MG TAB PO SCH ×2 (09:00→20:33)
[2017-06-03] MEDS ORDERED: INFLUENZA VIRUS VACCINE (QUADRIVALENT) 0.5 ML SYR IM ONE (09:00)
[2017-06-03] MEDS: SODIUM CHLORIDE 0.9% FLUSH 10 ML FLUSH IV FLUSH SCH ×2 (10:37→20:33)
[2017-06-03] MEDS: clonazePAM 0.5 MG TAB PO PRN ×2 (10:43→20:32)
[2017-06-03] MEDS: SODIUM CHLOR 0.45% 1000 ML INJ 1,000 ML IV SCH ×2 (12:00→20:33)
--- NOTE | 2017-06-03 12:56 | PQ ---
Physician Query Response Document PATIENT: ROZ BURCH : 1965 ADMIT DATE: 06/02/2017 5:58 AM DISCH DATE: RESPONDING PROVIDER #: [email or web address] QUERY TEXT: Anemia Type Anemia is documented in the Medical Record. Please specify the cause (includes suspected or probable cause) Such as: -- Due to acute blood loss -- Due to chronic blood loss -- Due to iron deficiency -- Due to postoperative blood loss -- Due to chronic disease -- Other, please specify The patient's Clinical Indicators include: hgb 6.6 hct 22.3 on admission heme + stools complaints of lethargy and weakness Query created by: Becky Goyal on 06/03/2017 9:24 AM RESPONSE TEXT: Anemia of GI loss, acute GI blood loss Electronically signed by: Rosa Lindsay MD 06/03/2017 12:52 PM
[2017-06-03] MEDS ORDERED: CHLORHEXIDINE GLUCONATE 2 % 1 PACK (2 CLOTHS) TOPICAL PRN (13:15)
[2017-06-03] MEDS ORDERED: LACTATED RINGER'S 1000 ML IV PRN (13:15)
[2017-06-03] MEDS ORDERED: METOPROLOL TARTRATE 25 MG TAB PO PRN (13:15)
[2017-06-03] MEDS ORDERED: SODIUM CHLORID 0.9% 500 ML IV PRN (13:15)
[2017-06-03] MEDS ORDERED: POVIDONE IODINE 5% (ANTISEPSIS KIT) 4 APPLICATIONS EACH NARE PRN (13:15)
--- NOTE | 2017-06-03 13:32 | GIPROC ---
[facility] [address] [place] [address], [id number] EGD PROCEDURE REPORT EXAM DATE: 06/03/2017 PATIENT NAME: Natalie Lala MR #: [id number] BIRTHDATE: 1965 ATTENDING: Clyde Martin MD ORDER #: [id number] DIRECTOR INBOUND SALES: Adi Gupta and Sasha Serrano STATUS: inpatient INDICATIONS: The patient is a 52 yr old female here for an EGD due to iron deficiency anemia PROCEDURE PERFORMED: EGD w/ biopsy MEDICATIONS: None and Per Anesthesia. TOPICAL ANESTHETIC: CONSENT: The patient understands the risks and benefits of the procedure and understands that these risks include, but are not limited to: sedation, allergic reaction, infection, perforation and/or bleeding. Alternative means of evaluation and treatment include, among others: physical exam, x-rays, and/or surgical intervention. The patient elects to proceed with this endoscopic procedure. medical equipment was checked for proper function. Hand hygiene and appropriate measures for infection prevention was taken. After the risks, benefits and alternatives of the procedure were thoroughly explained, Informed consent was verified, confirmed and timeout was successfully executed by the treatment team. The patient was anesthetized with topical anesthesia and the EC-[id number] (Pedi C) endoscope was introduced through the mouth and advanced to the second portion of the duodenum. Retroflexed views revealed a hiatal hernia The gastroscope was then slowly withdrawn and removed. ESOPHAGUS: The mucosa of the esophagus appeared normal. STOMACH: There was mild gastritis in the gastric antrum. A biopsy was performed using cold forceps. Sample sent for histology. Moderate portal hypertensive gastropathy was found in the gastric fundus. DUODENUM: The duodenal mucosa appeared normal in the bulb and second portion of the duodenum. ADVERSE EVENTS: There were no complications. IMPRESSIONS: 1. The esophagus appeared normal 2. There was mild gastritis in the gastric antrum; biopsy was performed 3. Portal hypertensive gastropathy was found in the gastric fundus 4. Normal duodenal mucosa in the bulb and second portion of the duodenum 5. Retroflexed views revealed a hiatal hernia RECOMMENDATIONS: 1. Await biopsy results. Biopsy results will not be ready for 7-10 days. If you don't hear from us in two weeks, call our office for biopsy results. 2. Anti-reflux regimen 3. Continue PPI 4. Avoid NSAIDS PATIENT CONDITION: stable DISPOSITION: Inpatient REPEAT EXAM: Return 3 years EGD pending biopsy results Clyde Martin MD eSigned: Clyde Martin MD 06/03/2017 1:32 PM cc: PATIENT NAME: DaiNatalie MR#: [id number]
--- NOTE | 2017-06-03 13:34 | GIPROC ---
[facility] [address] [place] [address], [id number] COLONOSCOPY PROCEDURE REPORT EXAM DATE: 06/03/2017 PATIENT NAME: Natalie Lala MR #: [id number] BIRTHDATE: 1965 ENDOSCOPIST: Clyde Martin MD ORDER #: [id number] BOX SEALING MACHINE CATCHER: Adi Gupta and Sasha Serrano STATUS: inpatient INDICATIONS: The patient is a 52 yr old female here for a colonoscopy due to iron deficiency anemia PROCEDURE PERFORMED: Colonoscopy, diagnostic MEDICATIONS: None and Per Anesthesia. PREP QUALITY: [place] Bowel Prep Score was Right colon 3, Mid colon 2, and Left colon 3. Total = 8. PREP TYPE:GoLytely ESTIMATED BLOOD LOSS: None CONSENT: The patient understands the risks and benefits of the procedure and understands that these risks include, but are not limited to: sedation, allergic reaction, infection, perforation and/or bleeding. Alternative means of evaluation and treatment include, among others: physical exam, x-rays, and/or surgical intervention. The patient elects to proceed with this endoscopic procedure. medical equipment was checked for proper function. Hand hygiene and appropriate measures for infection prevention was taken. After the risks, benefits and alternatives of the procedure were thoroughly explained, Informed consent was verified, confirmed and timeout was successfully executed by the treatment team. A digital exam revealed external hemorrhoids The Pentax EC-[id number] endoscope was introduced through the anus and advanced to the cecum, which was identified by both the appendix and ileocecal valve. The instrument was then slowly withdrawn as the colon was fully examined. COLON FINDINGS: Moderate diverticulosis was noted in the sigmoid colon. No bleeding was noted from the diverticulosis. Retroflexed views revealed internal hemorrhoids and Retroflexed views revealed medium internal hemorrhoids The scope was then completely withdrawn from the patient and the procedure terminated. PROCEDURE WITHDRAWAL TIME:7minutes ADVERSE EVENTS: There were no complications. IMPRESSIONS: 1. Moderate diverticulosis was noted in the sigmoid colon 2. Retroflexed views revealed internal hemorrhoids 3. Retroflexed views revealed medium internal hemorrhoids 4. Revealed external hemorrhoids RECOMMENDATIONS: 1. Benefiber 2 tsp daily 2. Continue surveillance 3. Yearly hemoccult 4. Xray for Small bowel follow through RECALL: Return 10 years Colonoscopy Clyde Martin MD eSigned: Clyde Martin MD 06/03/2017 1:34 PM cc: PATIENT NAME: NilodelfinajezNatalie MR#: [id number]
[2017-06-04] VITALS: BP 127/71; PULSE 79; RESP 20; TEMP 97.5; O2SAT 97
[2017-06-04 04:00] VITALS: BP 126/75; PULSE 94; RESP 20; TEMP 98; O2SAT 96
[2017-06-04 06:08] LABS: AUTOMATED NEUTROPHIL # 4.5 TH/MM3 (1.8-7.7); BASOPHIL % 0.2 % (0.0-2.0); EOSINOPHIL % 0.6 % (0.0-4.0); HEMOGLOBIN 8.8 GM/DL (11.6-15.3); LYMPH % 27.2 % (9.0-44.0); LYMPHOCYTE # 1.9 TH/MM3 (1.0-4.8); MEAN CELL VOLUME 67.7 FL (80.0-100.0); MEAN CORPUSCULAR HEMOGLOBIN 19.9 PG (27.0-34.0); MEAN PLATELET VOLUME 7.8 FL (7.0-11.0); MONO % 8.4 % (0.0-8.0); MONOCYTE # 0.6 TH/MM3 (0-0.9); NEUT % 63.6 % (16.0-70.0); PLATELET COUNT 392 TH/MM3 (150-450); RED BLOOD COUNT 4.43 MIL/MM3 (4.00-5.30); RED CELL DISTRIBUTION WIDTH 24.7 % (11.6-17.2)
[2017-06-04 06:14] LABS: MEAN CORPUSCULAR HGB CONC 29.5 % (32.0-36.0)
[2017-06-04 06:28] LABS: CALCIUM 8.6 MG/DL (8.5-10.1)
[2017-06-04 06:29] LABS: BICARBONATE 22.7 MEQ/L (21.0-32.0)
[2017-06-04 06:32] LABS: CREATININE 0.64 MG/DL (0.50-1.00)
[2017-06-04 08:00] VITALS: PULSE 90
[2017-06-04] MEDS ORDERED: POTASSIUM CHLORIDE 10 MEQ CONTROLLED RELEASE TAB PO ONE (09:15)
--- NOTE | 2017-06-04 09:15 | HHI.DS ---
Discharge Summary Admission Date Jun 02, 2017 at 05:58 Discharge Date: Jun 04, 2017 Admitting Diagnosis anemia/gib; polysustance abuse (1) GI bleed ICD Code: K92.2 - Gastrointestinal hemorrhage, unspecified Diagnosis: Principal Status: Acute (2) Anemia ICD Code: D64.9 - Anemia, unspecified Diagnosis: Principal Status: Acute (3) Polysubstance abuse ICD Code: F19.10 - Other psychoactive substance abuse, uncomplicated Diagnosis: Principal Status: Acute Procedures EGD/colonoscopy 06/03/17 Brief History - From Admission 52-year-old female with known history of depression, anxiety, attention deficit disorder, polysubstance abuse who presented to the hospital with her friend because of slurred speech, shortness of breath. Patient indicates that she does use drugs inappropriately. She has been using Adderall , Xanax, Lortab, Suboxone in order to democrat. He states that her last 3 days she has been overusing medications has not really slept. She called her friend on the phone last evening and apparently she stated that her friend noticed that she was having difficulty speaking and shortness of breath so her friend brought her to the hospital for evaluation. Patient indicates that she is actually prescribed the Adderall and Xanax, however Lortab, Suboxone she is getting off the street. She was using Suboxone because she thought she may withdrawal from the Lortab because she is only using it intermittently. However she is using the Lortab and Suboxone at the same time. Patient denies any medical complaints. At time of barium patient she appears appropriate and does admit to overusing medication for recreational use. Patient had lab done in emergency department found to have hemoglobin of 6.6. Stool studies was performed which did show heme positive stool. Patient denies any melena or hematochezia. She denies any history of anemia or GI bleed. She denies any NSAID, aspirin use. Patient was admitted for GI bleed for GI consultation. CBC/BMP: 06/04/17 0520 06/04/17 0520 Significant Findings Laboratory Tests Test 06/02/17 04:30 06/02/17 04:53 06/02/17 18:17 06/03/17 05:45 Urine Opiates Screen POS (NEG) Urine Amphetamines Screen POS (NEG) Urine Benzodiazepines Screen POS (NEG) Red Blood Count 3.48 MIL/MM3 (4.00-5.30) Hemoglobin 6.6 GM/DL (11.6-15.3) 9.2 GM/DL (11.6-15.3) 8.8 GM/DL (11.6-15.3) Hematocrit 22.3 % (35.0-46.0) 30.2 % (35.0-46.0) 29.8 % (35.0-46.0) Mean Corpuscular Volume 64.0 FL (80.0-100.0) 67.5 FL (80.0-100.0) Mean Corpuscular Hemoglobin 18.9 PG (27.0-34.0) 20.0 PG (27.0-34.0) Mean Corpuscular Hemoglobin Concent 29.5 % (32.0-36.0) 29.7 % (32.0-36.0) Red Cell Distribution Width 20.8 % (11.6-17.2) 24.2 % (11.6-17.2) Monocytes (%) (Auto) 12.8 % (0.0-8.0) Platelet Morphology Comment CLUMPED (NORMAL) Spherocytes OCC (NORMAL) Ovalocytes 1+ (NORMAL) 1+ (NORMAL) Blood Urea Nitrogen 20 MG/DL (7-18) Albumin 3.0 GM/DL (3.4-5.0) Calcium Level 8.1 MG/DL (8.5-10.1) 8.4 MG/DL (8.5-10.1) Aspartate Amino Transf (AST/SGOT) 14 U/L (15-37) Total Bilirubin 0.1 MG/DL (0.2-1.0) Sodium Level 135 MEQ/L (136-145) Estimat Glomerular Filtration Rate 78 ML/MIN (>89) Troponin I LESS THAN 0.02 NG/ML Acetaminophen Level 3.7 MCG/ML (10.0-30.0) LESS THAN 2.0 MCG/ML Target Cells 1+ (NORMAL) Potassium Level 3.4 MEQ/L (3.5-5.1) Chloride Level 109 MEQ/L (98-107) Test 06/04/17 05:20 Hemoglobin 8.8 GM/DL (11.6-15.3) Hematocrit 30.0 % (35.0-46.0) Mean Corpuscular Volume 67.7 FL (80.0-100.0) Mean Corpuscular Hemoglobin 19.9 PG (27.0-34.0) Mean Corpuscular Hemoglobin Concent 29.5 % (32.0-36.0) Red Cell Distribution Width 24.7 % (11.6-17.2) Monocytes (%) (Auto) 8.4 % (0.0-8.0) Potassium Level 3.4 MEQ/L (3.5-5.1) Chloride Level 110 MEQ/L (98-107) Imaging Last Impressions Chest X-Ray 06/02/17 0416 Signed Impressions: Service Date/Time: Friday, June 02, 2017 04:26 - CONCLUSION: Slight cardiomegaly. Jeannine Breen MD Abdomen/Pelvis CT 06/02/17 0000 Signed Impressions: Service Date/Time: Friday, June 02, 2017 05:59 - CONCLUSION: Essentially unremarkable study except for small left adrenal adenoma. Jeannine Breen MD PE at Discharge GENERAL: Well-developed, well-nourished, appears anxious, alert and orientated CARDIAC: Regular rhythm, regular rate. S1/S2 are heard. No murmurs gallops or rubs. LUNGS: Clear to auscultation bilaterally. No wheeze, rhonchi or rales. No use of accessory muscles on inspiration or expiration. ABDOMEN: Soft, nontender. Nondistended. Bowel sounds heard in all 4 quadrants. No organomegaly or masses. Negative rebound, negative guarding EXTREMITIES: No edema, pulses are equal bilaterally. No cyanosis or clubbing NEUROLOGY: Mood and affect appear appropriate. Cranial nerves II through XII grossly intact. Muscle strength 5/5 in upper and lower extremities bilaterally. Hospital Course Patient with heme positive stool S/P 2 units packed red blood cells. MOnitor H/H and transfuse if HGB < 7 or if symptomatic GI consulted and plan for EGD/colonoscopy Avoid NSAIDs, aspirin S/p colonoscopy 06/03 with Moderate diverticulosis in the sigmoid colon, internal hemorrhoids, medium internal hemorrhoids, external hemorrhoids Benefiber 2 tsp daily, Yearly Hemoccult Xray for Small bowel follow through. Return 10 years Colonoscopy. S/p EGD 06/03/17 Mild gastritis in the gastric antrum; biopsy was performed to f/u with GI in 2 weeks for results Portal hypertensive gastropathy was found in the gastric fundus. Hiatal hernia Continue PPI. Avoid NSAIDS. Return 3 years EGD pending biopsy results. Plan for Xray small bowel follow through today 06/03 Polysubstance abuse, overuse medication Patient denies any suicidal intention, ideation Patient is supposedly recovering addict Counseled patient on abstinence and outpatient rehabilitation DVT prevention sequential compression devices, avoid chemical prophylaxis secondary to anemia from GI bleed Discussed with the patient, nurse. s/p EGD/colonoscopy 06/03, had Xray bowel through reviewed with Dr Martin GI. Cleared patient for DC to follow up as OP DC in stable condition to f/u as OP with PCP and consultants. Pt Condition on Discharge: Stable Discharge Disposition: Discharge Home Discharge Time: > 30 minutes Discharge Instructions DIET: Follow Instructions for: Heart Healthy Diet Activities you can perform: Regular-No Restrictions Follow up Referrals: Gastroenterology - 2 Weeks with Clyde Martin MD PCP Follow-up - 2-3 Days New Medications: Ferrous Sulfate (Ferrous Sulfate) 325 Mg (65 Mg Iron) Tablet 325 MG PO BIDPC for Nutritional Supplement, #60 TAB 0 Refills Wheat Dextrin (Benefiber) 3 Gram/4 Gram Powder 3 GM PO BID for Nutritional Supplement for 30 Days, CAN Changed Medications: Lansoprazole (Prevacid) 30 Mg Capdr 40 MG PO DAILY for gastritis , #60 CAP 0 Refills (Changed from: 30 MG) Continued Medications: Acyclovir (Acyclovir) 800 Mg Tab 800 MG PO TID for Mgmt Viral Infection, TAB 0 Refills Alprazolam (Xanax) 1 Mg Tab 1 MG PO Q6H PRN for ANXIETY, TAB 0 Refills Amphetamine-Dextroamphetamine (Adderall) 20 Mg Tab 20 MG PO DAILY for Hyperactivity Control, #30 TAB 0 Refills Avoid late evening doses. Space doses at least 4 to 6 hours if more than once/day dosing. Bupropion HCl ER 24 HR (Wellbutrin Xl 24 HR) 300 Mg Tab 300 MG PO DAILY for Control Depression, TAB 0 Refills Hydrocodone-Acetaminophen (Lortab) 5-325 Mg Tab 1 TAB PO Q6H PRN for PAIN, TAB 0 Refills Hydrocortisone Acetate Supp (Anucort-Hc Supp) 25 Mg Supp 25 MG RECTAL BID for Hemorrhoids for 7 Days, SUPP 0 Refills Magnesium Citrate Liq (Citrate of Magnesia Liq) 300 Ml Liq 300 ML PO ONCE, #1 BOTTLE 0 Refills Rosa Lindsay MD Jun 04, 2017 09:15
--- NOTE | 2017-06-04 09:25 | HHI.PR ---
Subjective Remarks Feels better , no n/v/d/c. No fever or chills. No abd pain. Eating well Objective Vitals Vital Signs Date Time Temp Pulse Resp B/P (MAP) Pulse Ox O2 Delivery O2 Flow Rate FiO2 06/04/17 04:00 98.0 94 20 126/75 (92) 96 06/04/17 00:00 97.5 79 20 127/71 (89) 97 06/03/17 23:00 90 06/03/17 20:00 97.3 78 20 134/76 (95) 98 06/03/17 19:25 97 21 06/03/17 17:49 98 21 06/03/17 16:00 97.1 80 20 121/77 (92) 98 06/03/17 13:51 74 16 116/63 (80) 100 06/03/17 13:36 97.7 78 16 109/67 (81) 100 06/03/17 12:40 98.7 83 18 128/85 (99) 95 06/03/17 12:00 98.3 86 20 131/67 (88) 96 I/O 06/03/17 06/03/17 06/03/17 06/04/17 06/04/17 06/04/17 07:00 15:00 23:00 07:00 15:00 23:00 Intake Total 4000 ml 400 ml 0 ml Balance 4000 ml 400 ml 0 ml Intake Oral 4000 ml 0 ml 0 ml Other 400 ml # Voids 5 1 1 # Bowel Movements 5 Result Diagram: 06/04/17 0520 06/04/17 0520 Imaging Last Impressions Chest X-Ray 06/02/17 0416 Signed Impressions: Service Date/Time: Friday, June 02, 2017 04:26 - CONCLUSION: Slight cardiomegaly. Jeannine Breen MD Abdomen/Pelvis CT 06/02/17 0000 Signed Impressions: Service Date/Time: Friday, June 02, 2017 05:59 - CONCLUSION: Essentially unremarkable study except for small left adrenal adenoma. Jeannine Breen MD Objective Remarks GENERAL: Well-developed, well-nourished, appears anxious, alert and orientated CARDIAC: Regular rhythm, regular rate. S1/S2 are heard. No murmurs gallops or rubs. LUNGS: Clear to auscultation bilaterally. No wheeze, rhonchi or rales. No use of accessory muscles on inspiration or expiration. ABDOMEN: Soft, nontender. Nondistended. Bowel sounds heard in all 4 quadrants. No organomegaly or masses. Negative rebound, negative guarding EXTREMITIES: No edema, pulses are equal bilaterally. No cyanosis or clubbing NEUROLOGY: Mood and affect appear appropriate. Cranial nerves II through XII grossly intact. Muscle strength 5/5 in upper and lower extremities bilaterally. Procedures EGD/colonoscopy 06/03/17 A/P Problem List: (1) GI bleed ICD Code: K92.2 - Gastrointestinal hemorrhage, unspecified Status: Acute (2) Anemia ICD Code: D64.9 - Anemia, unspecified Status: Acute (3) Polysubstance abuse ICD Code: F19.10 - Other psychoactive substance abuse, uncomplicated Status: Acute Assessment and Plan Anemia from GI loss Patient with heme positive stool S/P 2 units packed red blood cells. MOnitor H/H and transfuse if HGB < 7 or if symptomatic GI consulted and plan for EGD/colonoscopy Avoid NSAIDs, aspirin S/p colonoscopy 06/03 with Moderate diverticulosis in the sigmoid colon, internal hemorrhoids, medium internal hemorrhoids, external hemorrhoids Benefiber 2 tsp daily, Yearly Hemoccult Xray for Small bowel follow through. Return 10 years Colonoscopy. S/p EGD 06/03/17 Mild gastritis in the gastric antrum; biopsy was performed to f/u with GI in 2 weeks for results Portal hypertensive gastropathy was found in the gastric fundus. Hiatal hernia Continue PPI. Avoid NSAIDS. Return 3 years EGD pending biopsy results. Plan for Xray small bowel follow through today 06/03 Polysubstance abuse, overuse medication Patient denies any suicidal intention, ideation Patient is supposedly recovering addict Counseled patient on abstinence and outpatient rehabilitation DVT prevention sequential compression devices, avoid chemical prophylaxis secondary to anemia from GI bleed Discussed with the patient, nurse. DC plan pending improvement, s/p EGD/colonoscopy 06/03, had Xray bowel through reviewed with Dr Mario HORVATH. Cleared by GI for DC to follow up as OP Discharge Planning Discharge home in stable condition to follow-up PCP and consultants as outpatient Diet healthy as tolerated Activity ad maren tolerated Medications per medication reconciliation was Rosa Lindsay MD Jun 04, 2017 09:25
[2017-06-04] MEDS ORDERED: WHEA1POW13 PO (09:33)
[2017-06-04] MEDS ORDERED: PREV30CA36 PO (09:33)
[2017-06-04] MEDS ORDERED: FERR325T18 PO (09:36)
[2017-06-04] MEDS: clonazePAM 0.5 MG TAB PO PRN (11:08)
[2017-06-04] MEDS: DOCUSATE SODIUM 50 MG/SENNA 8.6 MG TAB PO SCH (11:09)
[2017-06-04] MEDS: SODIUM CHLOR 0.45% 1000 ML INJ 1,000 ML IV SCH (11:10)
[2017-06-04] MEDS: SODIUM CHLORIDE 0.9% FLUSH 10 ML FLUSH IV FLUSH SCH (11:10)
--- NOTE | 2017-06-04 11:11 | RADRPT ---
EXAM DATE/TIME: 06/04/2017 07:57 CORRECTION Corrected on: June 04, 2017; added floro time and image count [place] COMPARISON: No previous studies available for comparison. INDICATIONS : Anemia. Post endoscopy yesterday FLUORO TIME: 1.4 minutes IMAGE COUNT: 22 CONTRAST: Entero Vu 24% Barium Sulfate (24% w/v, 20% w/w) IMAGING TIME(S): 15 min, 30 min, 45 min, 1 hr, 1.5 hrs, 2.5 hrs MEDICAL HISTORY : Hypercholesterolemia. Shingles. SURGICAL HISTORY : Breast augmentation. ENCOUNTER: Subsequent ACUITY: 3 days PAIN SCORE: 0/10 LOCATION: abdomen FINDINGS: Preliminary film is unremarkable. Moderate sized hiatal hernia is noted. The stomach is otherwise grossly unremarkable. Examination of the small bowel demonstrates normal mucosal pattern involving the jejunum and ileum. There is no evidence of mass or obstruction. No intraluminal filling defects are identified. Small bowel transit time is mildly prolonged at 90 minutes. Fluoroscopy of the abdomen and terminal ileum demonstrates no abnormality. CONCLUSION: Mildly prolonged transit time. Otherwise Unremarkable small bowel examination. Adalid Jerry MD on June 04, 2017 at 10:55 Board Certified Radiologist. This report was verified electronically. Surjit Bermudez on June 04, 2017 at 11:36 Board Certified Radiologist. This report was verified electronically. Board Certified Radiologist. This report was verified electronically.
== END 2017-06-04 15:50 | disposition home or self-care (01) | DRG 378 ==
LOC: PHED 03:52 → PHEDA 05:58 → PH3B 06:28
PROVIDERS: ADMIT Hospitalist; ATTEND Hospitalist
PROC: 30233N1 Transfusion of Nonautologous Red Blood Cells into Peripheral Vein, Percutaneous Approach (ICD-10-PCS; principal; 2017-06-02)
PROC: 0DJD8ZZ Inspection of Lower Intestinal Tract, Via Natural or Artificial Opening Endoscopic (ICD-10-PCS; 2017-06-03)
PROC: 0DB78ZX Excision of Stomach, Pylorus, Via Natural or Artificial Opening Endoscopic, Diagnostic (ICD-10-PCS; 2017-06-03 13:16)
DX: K92.2 Gastrointestinal hemorrhage, unspecified (principal); K76.6 Portal hypertension; D62 Acute posthemorrhagic anemia; F41.9 Anxiety disorder, unspecified; F32.9 Major depressive disorder, single episode, unspecified; F17.210 Nicotine dependence, cigarettes, uncomplicated; F90.9 Attention-deficit hyperactivity disorder, unspecified type; K59.00 Constipation, unspecified; K31.89 Other diseases of stomach and duodenum; K29.70 Gastritis, unspecified, without bleeding; K44.9 Diaphragmatic hernia without obstruction or gangrene; K64.4 Residual hemorrhoidal skin tags; K57.30 Diverticulosis of large intestine without perforation or abscess without bleeding; K64.8 Other hemorrhoids; F19.10 Other psychoactive substance abuse, uncomplicated; Z91.14 Patient's other noncompliance with medication regimen
CPT/HCPCS: 36430; 71010; 74177; 74250; 80048; 80053; 80307; 81001; 82550; 83735; 84484; 85014; 85018; 85025; 85610; 85730; 86850; 86900; 86901; 86920; 88305; 93005; 96360; 96361; J7030; J7120; P9016; Q9967